=== PATIENT | male | born 1985 | race Caucasian/White ===

== ENCOUNTER 2018-02-02 17:19 | Emergency (ER) | payer BC ==
[2018-02-02 17:31] VITALS: BP 135/80
--- NOTE | 2018-02-02 18:04 | RAD ---
INDICATION: Knee pain COMPARISON: None TECHNIQUE: AP, lateral, tunnel, and sunrise views were obtained. FINDINGS: The bony structures, joint spaces, and soft tissues are normal for age. IMPRESSION: NEGATIVE EXAMINATION.
--- NOTE | 2018-02-02 18:06 | UC ---
Knee Pain HPI - HPI Summary HPI Summary: 32 y/o male presents to the urgent care c/o left knee pain s/p fall while skiing at 1600Pm today. Pt reports he heard a pop sound after bottom of foot slammed to surface. Pt states difficulty to bear weight w/ left knee and associated w/ mild limping. Pain is 5/10 w/ some bruising over the patella. he has been applying ice which helped. Pt denies SOB, chest pain, calf pain, abdominal pain, N/V/D, numbness and tingling sensation over the left extremity. - History of Current Complaint Chief Complaint: UCLowerExtremity Stated Complaint: KNEE INJURY Time Seen by Provider: 02/02/18 17:53 Hx Obtained From: Patient Onset/Duration: Sudden Onset, Lasting Hours - 2 hrs, Still Present Severity Initially: Moderate Severity Currently: Moderate Location Of Injury: left knee Pain Intensity: 6 Pain Scale Used: 0-10 Numeric Character: Sharp Aggravating Factor(s): Weight Bearing, Prolonged Standing Alleviating Factor(s): Rest, Cold Associated Signs And Symptoms: Positive: Swelling - mild left knee, Bruising - over patella. Negative: Fever, Weakness, Numbness, Tingling Able to Bear Weight: Yes - Risk Factors Septic Arthritis Risk Factor: Negative Gout Risk Factor: Negative - Allergies/Home Medications Allergies/Adverse Reactions: Allergies Allergy/AdvReac Type Severity Reaction Status Date / Time No Known Allergies Allergy Verified 02/02/18 17:32 PMH/Surg Hx/FS Hx/Imm Hx Previously Healthy: Yes - Pt denies PMHX - Surgical History Surgical History: None - Family History Known Family History: Positive: None - Pt denies PMHX - Social History Occupation: Employed Full-time Lives: With Family Alcohol Use: Rare Substance Use Type: None Smoking Status (MU): Never Smoked Tobacco Review of Systems Constitutional: Negative Skin: Bruising - over the left patella Eyes: Negative ENT: Negative Respiratory: Negative Cardiovascular: Negative Gastrointestinal: Negative Genitourinary: Negative Motor: Negative Neurovascular: Negative Musculoskeletal: Decreased ROM - left knee, Other: - left knee pain s/p inury while skiing Neurological: Negative Psychological: Negative Is Patient Immunocompromised?: No All Other Systems Reviewed And Are Negative: Yes Physical Exam - Summary Physical Exam Summary: Vital Signs Reviewed: Yes General: well developed, well nourished male sitting in the examining table w/o any apparent distress Eyes: Positive: Conjunctiva Clear - PERRLA, EOMI, fundi grossly normal ENT: Positive: Normal ENT inspection, Hearing grossly normal, Pharynx normal, TMs normal Neck: Positive: Supple, Nontender, No Lymphadenopathy Respiratory: Positive: Chest nontender, Lungs clear, Normal breath sounds, No respiratory distress Cardiovascular: Positive: RRR, No Murmur, Pulses Normal, Brisk Capillary Refill Abdomen Description: Positive: Nontender, No Organomegaly, Soft. Negative: CVA Tenderness (R), CVA Tenderness (L) Bowel Sounds: Positive: Present Musculoskeletal: Positive: Strength Intact, No Edema, LF Knee: Pt is able to bear weight and ambulate with limping. No surface trauma, mild soft tissue swelling over patella w/ mild ecchymosis, no obvious effusion. No overlying erythema or warmth. The L knee is without obvious asymmetry or deformity when compared with the R knee. Decreased ROM of LF knee due to pain. No tenderness to palpation of the patella, no effusion or ballottement. No tenderness over the infrapatellar tendon. No tenderness over the medial. Point tenderness over lateral tibial plateaus. No tenderness over the proximal fibular head, No tenderness, fullness or mass of the popliteal fossa. No quadriceps tenderness. No laxity of the ACL. PCL, MCL, or LCL. no collateral ligament laxity to valgus or varus stress. Negative Cristal/Drawer sign. positive Cecile. Distal motor and neurovascular status intact. Neurological Exam: Normal Psychological Exam: Normal Skin Exam: Normal Triage Information Reviewed: Yes Vital Signs: Initial Vital Signs Temp 99.0 F 02/02/18 17:26 Pulse 100 02/02/18 17:26 Resp 15 02/02/18 17:26 BP 135/80 02/02/18 17:26 Pulse Ox 98 02/02/18 17:26 Knee Pain Course/Dx - Course Course Of Treatment: 32 y/o male presents to the urgent care c/o left knee pain s/p fall while skiing at 1600Pm today. Pt reports he heard a pop sound after bottom of foot slammed to surface. Pt states difficulty to bear weight w/ left knee and associated w/ mild limping. Pain is 5/10 w/ some bruising over the patella. he has been applying ice which helped. Pt denies SOB, chest pain, calf pain, abdominal pain, N/V/D, numbness and tingling sensation over the left extremity.Hx obtained. LF knee X-ray ordered. Impression:No acute osseous injury. Pt's knee immobilized w/ knee immobilizer for 1 week.Advised RICE. First dose of Naproxen given at the clinic tonight.RX Naproxen PO. Pt advised to avoid strenuous exercise or standing for long period of time. If not improvement of symptoms to f/u with Orthopedic Dr Arshad or your PCP in 1 week for further evaluation and treatment. Mother and PT understood and agreed with D /C instructions. - Differential Dx/Diagnosis Differential Diagnosis/HQI/PQRI: Abrasion, Dislocation, Fracture (Closed), Sprain, Strain, Tendonitis Provider Diagnoses: 1- Left acute knee pain s/p injury Discharge - Discharge Plan Condition: Stable Disposition: HOME Prescriptions: Naproxen Sodium [Naproxen Sodium ER] 500 mg PO Q8HR PRN #30 [id number].24hr PRN Reason: Pain Patient Education Materials: Knee Sprain (ED) Forms: *Work Release Referrals: Quentin Arshad MD [Medical Doctor] - 1 Week Isiah Clark MD [Primary Care Provider] - 1 Week Additional Instructions: 1-Please take medications as directed to alleviate pain and swelling. 2-Please apply ice, elevate your leg at night time, keep your knee immobilized with the knee immobilizer. Avoid long periods of standing 3- Please f/u with Orthopedic or your PCP in 1 week is not improvement of symptoms for further evaluation and treatment.
[2018-02-02] MEDS ORDERED: Naproxen TAB* 250 MG PO ONE (18:16)
== END 2018-02-02 18:39 | disposition home or self-care (01) ==
LOC: UCEAST 17:19
DX: M25.562 Pain in left knee (principal); W19.XXXA Unspecified fall, initial encounter; Y93.23 Activity, snow (alpine) (downhill) skiing, snowboarding, sledding, tobogganing and snow tubing; Y92.9 Unspecified place or not applicable
CPT/HCPCS: 99212; A9270-GY; G0463

== ENCOUNTER → 2018-03-28 06:14 | Day surgery (SDC) | payer BC ==
[~2018-03-28 06:14] MED LIST: Buffered Lidocaine 0.9% SYRIN* 5 ML/SYR SYRINGE INTRADERM ONE; Buffered Lidocaine 0.9% SYRIN* 5 ML/SYR SYRINGE ONE; Bupivacaine 0.25% SDV* 30 ML ONE; Bupivacaine 0.5% PF 10 ML VIAL INJ ONE; Dexamethasone IV* 4 MG/ML 1 ML (4 MG) ONE; DiMENhydriNATE IV* 50 MG/ML VIAL IV PUSH PRN; EPINEPHRINE 1 MG/ML 1 ML VIAL ONE; Famotidine TAB* 20 MG ONE; Famotidine TAB* 20 MG PO ONE; Gabapentin CAP(*) 300 MG ONE; Gabapentin CAP(*) 300 MG PO ONE; Ketorolac INJ* 30 MG/ML 1 ML VIAL ONE; Lidocaine 2% PF * 5 ML VIAL ONE; Midazolam* 1 MG/ML 5 ML VIAL (5 MG) ONE; Morphine INJ* 10 MG/ML 1 ML CARPUJECT ONE; Morphine INJ* 2 MG/ML 1 ML CARPUJECT IV PRN; Naloxone* 0.4 MG/ML 1 ML VIAL IV PRN; Ondansetron INJ* 2 MG/ML VIAL ONE; PROCHLORPERAZINE INJ 5 MG/ML 2 ML VIAL IV PRN; PROCHLORPERAZINE INJ 5 MG/ML 2 ML VIAL ONE; Propofol* 10 MG/ML 20 ML BTL IV PUSH ONE; Scopolamine 1.5 mg* PATCH TRANSDERM PRN; Scopolamine PATCH Remove* 1 NOTE MISC PATCH OFF ONE; ceFAZolin 2 GM PREMIX (*) 2 GM/50 ML BAG IVPB ONE; fentaNYL* 50 MCG/ML 2 ML VIAL (100 MCG VIAL) IV PRN; fentaNYL* 50 MCG/ML 2 ML VIAL (100 MCG VIAL) ONE; oxyCODONE/Acetamin 5/325 MG* TAB PO PRN
[2018-03-28 15:13] VITALS: BP 142/86
--- NOTE | 2018-03-31 03:20 | OP ---
DATE OF OPERATION: 03/28/18 - [facility] DATE OF : 83 SURGEON: Watson Lim MD SALES SERVICE REP: MIAH German. A physician wardrobe assistant was required for the length of the procedure for positioning, assistance with instrumentation, retraction, and closure. ANESTHESIOLOGIST: Dr. Preet Purdy. ANESTHESIA: General anesthesia, regional adductor block anesthesia, local anesthesia with 0.25% Marcaine without epinephrine PREOPERATIVE DIAGNOSIS: Left knee anterior cruciate ligament tear. POSTOPERATIVE DIAGNOSIS: Left knee anterior cruciate ligament tear. PROCEDURE: Left knee arthroscopic ACL reconstruction with [id number] autograft. ANTIBIOTICS: Ancef 2 g IV. IV FLUIDS: 2100 mL crystalloid. [id number] TIME: 169 minutes. TOURNIQUET TIME: 120 minutes at 300 mmHg. COMPLICATIONS: None. ESTIMATED BLOOD LOSS: Minimal. IMPLANTS: Mitek Alexandra [employer] screws 8 x 23 mm in the femur and 9 x 23 mm in the tibia. 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 The patient heard or felt a pop when his knee went into full extension when he fell while skiing. MRI revealed a likely full-thickness ACL tear. I treated the patient with a hinged knee sleeve, physical therapy for range of motion, strengthening, and rehab. The patient opted for surgery. I discussed with him different graft options and he chose the [id number]-[id number] autograft. The patient obtained full passive range of motion preoperatively. Discussed risks and potential complications of surgery including bleeding, infection, nerve or blood vessel injury, knee pain, stiffness, osteoarthritis, graft rerupture. DESCRIPTION OF PROCEDURE: In preoperative holding, the patient signed a written consent. Operative extremity was marked in preoperative holding. Hair above the knee were shaped. The patient was brought back to the operating room and placed supine on operating room table. The patient was sedated and intubated. An adductor block was done by Dr. Purdy. A tourniquet was placed about the left thigh. The left lower extremity was prepped with chlorhexidine and then ChloraPrep. Draping was performed. A lateral post was applied to the table. Surgical time-out was performed. Established anterolateral knee arthroscopy portal using standard technique. Entered my arthroscope into the knee and started my diagnostic arthroscopy. I note patellofemoral compartment articular cartilage lesion. There was some synovitis anteriorly in that compartment. Dropped down at medial compartment. No articular cartilage injury. No clear meniscal tear, although there seemed to be possibly similar at the end of the meniscus about the body to posterior horn junction. I next moved to the intercondylar notch and noticed clear injury to the ACL. I moved to the lateral compartment where there was no articular cartilage and no meniscus tear. I returned to the medial compartment. I established an anteromedial portal under direct visualization. I used that darcie-medial portal to enter my arthroscopic probe and probed the medial meniscus. There was no tear. I next moved to the intercondylar notch. I entered an arthroscopic shaver and debrided the ligamentum mucosum as well as some synovitis anteriorly. This afforded me an improved visual of the ACL. I reentered the arthroscopic probe and there was clear tearing of the ACL about its midsubstance and clear tearing off of the wall of the intercondylar notch. There might have been a few fibrous still attached most superiorly. I then brought in an arthroscopic shaver and just slightly debrided along the wall and the ACL soon fell away completely. At this point, I decided that the patient definitively needed an ACL reconstruction. The lateral post was removed from the table. The knee was placed into a [facility] knee positioner. An Esmarch was applied and the tourniquet was elevated to 300 mmHg. With the knee in 90 degrees of extension, I harvested the bone- patellar-bone autograft using standard technique. I made a skin incision directly anterior and longitudinal over the patella to the distal end of the tibial tubercle. Dissected down to paratenon. I split the paratenon and in the midline. Feathered it off of the patellar tendon. I measured the patellar tendon width. It was well over 30 mm. I marked the midpoint from medial to lateral of the patellar tendon. I used a double blade to cut out the 10 mm of the inner most patellar tendon. I marked my bone cuts with Bovie electrocautery about the patella and tibial tubercle. I used an oscillating saw to take my bone graft. We removed my graft. It looked excellent. High quality of bone. It was not too deep in either the patella or tibial tubercle. I next placed two [id number]-[id number] stitches, buried with Ethibond 0 suture in the patellar tendon. My wardrobe assistant then placed three additional stitches similarly. I went to the back table with my graft. I removed some bone from each bone plug , shaping them down to an appropriate size for a 10-mm tunnel. My patellar bone block was approximately 23 mm long. My tibial bone graft was approximately 30 mm long, as preferred by me. I placed FiberWire #5 suture into either end of the graft. I placed 1 stitch into the proximal end and 2 stitches into the distal end. The stitches went through the bone blocks with tunnels that I had drilled, but I also placed several whipstitches into the patellar tendon with 1 stitch on either end to supplement the fixation. I held the graft under tension on a back table with a moist sponge overlying it. Returned to the knee. I had dropped the tourniquet while I was working on the back table. I then reinflated the tourniquet to return to the knee. I removed the stumps of the ACL. I cleared off the lateral wall of the intercondylar notch with a vapor and then performed notchplasty with an arthroscopic german. I next placed a pin for a femoral tunnel. I placed it using a 7-mm around the back guide. This pin was located at the level of the superior extent of the articular cartilage posteriorly. I placed this pin and did my work through an accessory anteromedial portal. I then reamed a tunnel with a 10-mm acorn reamer, 30 mm long. Removed drill and pin and used arthroscopic shaver to debride detritus from the femoral tunnel and obtained good images of it. I returned the knee to 90 degrees of flexion. Identified the desired exit point of the tibial tunnel at the level anterior to posterior of the posterior aspect of the anterior horn of the lateral meniscus, at the midline from medial to lateral on the coronal view. I placed ACL tibial guide set to 55 degrees. I placed a pin. I then drilled a tunnel with a 10-mm reamer. I removed drill and pin and shaved up detritus. I placed a passing stitch through each tunnel. I marked my graft and then passed it using the passing stitch. I placed a Nitinol wire in the tunnel and used a tap and then placed my screw, Alexandra, 8 x 23 mm. I then placed the knee in full extension. Into the tibial tunnel, I placed Nitinol wire, tap, and then a 9 x 23 mm screw. The screw was placed while my wardrobe assistant applied a posterior drawer maneuver on to the knee. I tested the knee and there was no laxity whatsoever with anterior drawer and Cristal's test. I returned the arthroscope to the knee and imaged the ACL graft in a variety of flexion positions of the knee. Graft looked well located and under appropriate tension. I cut the stitches or excess suture. I placed some cancellous bone chips and allograft into the tibial tubercle bone defect. Into the patellar bone defect, I placed bone that I had removed from the bone blocks while contouring them. Closed the paratenon using running and figure- of-eight stitches using Vicryl 0 suture. Irrigation. Closure of subcutaneous tissue using buried simple stitches using Vicryl 2.0 suture. Closure of the longitudinal skin incision with a running stitch using nylon 4.0 suture. Closure of the original knee arthroscopy skin incision with figure-of- eight stitches using nylon 4.0 suture. Xeroform, 4x4s, sterile Webril, Webril, Derek bandage from foot to thigh. The tourniquet had been dropped when tourniquet time reached to 120 minutes. Local anesthetic was applied to the subcutaneous tissues surrounding the skin incisions after closure and just prior to placement of dressing. DISPOSITION: After the patient was extubated and a knee brace had been applied , locked in extension with a cooling unit on to the knee, the patient was brought to the PACU. The patient will start physical therapy immediately, next week. He will take Percocet as needed for pain control, Keflex x7 days for infection prophylaxis, and aspirin for 2 weeks b.i.d. for DVT prophylaxis. FOLLOWUP: He will follow up with me in 10 to 14 days postoperatively in clinic for a wound check. [id number]/[facility] #: [id number]
== END | disposition home or self-care (01) ==
LOC: OR 06:14
PROVIDERS: ATTEND Orthopaedic Surgery
DX: S83.512A Sprain of anterior cruciate ligament of left knee, initial encounter (principal); Z68.30 Body mass index [BMI] 30.0-30.9, adult; V00.328A Other snow-ski accident, initial encounter; Y93.23 Activity, snow (alpine) (downhill) skiing, snowboarding, sledding, tobogganing and snow tubing; Y92.89 Other specified places as the place of occurrence of the external cause; G89.18 Other acute postprocedural pain
CPT/HCPCS: A9270-GY; C1713; C1776; J0690; J0780; J1100; J1885; J2250; J2270; J2405; J2704; J3010